=== PATIENT | female | born 1960 | race Caucasian/White ===

== ENCOUNTER → 2018-03-17 16:08 | Outpatient (CLI) | payer OTHER, SELFPAY ==
--- NOTE | 2018-03-17 16:13 | BI_ITS ---
MAMMOGRAPHY - BILATERAL SCREENING REASON FOR EXAM: Female, 57 years old. Routine annual screening examination. PERTINENT HISTORY: Grandmother with breast cancer. Remote right excisional breast biopsy and stereotactic breast biopsy. TECHNIQUE: Digital bilateral breast neeta (3D mammographic acquisition) in the CC and MLO projections. 2-D mediolateral oblique (MLO) and craniocaudad (CC) views of both breasts were obtained. CAD: Full Field Digital Mammography with Computer Added Detection was performed. COMPARISON: Comparison is made with prior study dated January 30, 2017 and September 30, 2015. FINDINGS: Breast Composition: The breasts are heterogeneously dense, which may obscure small masses. There are no dominant masses or suspicious calcifications. Stable 1.3 cm x 0.9 cm well-defined nodule in the upper lateral deep portion of the right breast. This has a central fatty hilum suggestive of a small lymph node. No other significant abnormalities are identified. There has been no significant change since the prior study. BI/SCREENING MAMM (CAD), BILAT IMPRESSION: Stable bilateral screening mammogram. Yearly follow-up mammogram recommended. (A) ASSESSMENT CATEGORY: BIRADS Category 2: Benign. A letter regarding these results will be sent to the patient by the facility within 30 days. Approximately 10% of breast cancers are not detected by mammography. A normal mammogram should not delay biopsy of a clinically suspicious abnormality. [id number] Electronically Signed: Amado Sepulveda MD at 8:44 EST , Service support ,
== END ==
PROVIDERS: Family Provider Family Medicine; PCP Family Medicine; Referring Provider Nurse Practitioner Family; Visit Provider Nurse Practitioner Family
DX: Z12.31 Encounter for screening mammogram for malignant neoplasm of breast (principal)
CPT/HCPCS: 77063; 77067

== ENCOUNTER → 2019-07-20 07:29 | Outpatient (CLI) | payer OTHER, SELFPAY ==
--- NOTE | 2019-07-20 07:30 | BI_ITS ---
MAMMOGRAPHY - BILATERAL SCREENING REASON FOR EXAM: Female, 59 years old. Routine annual screening examination. PERTINENT HISTORY: Grandmother with breast cancer. Remote right excisional breast biopsy and right stereotactic breast biopsy. TECHNIQUE: Digital bilateral breast stephane (3D mammographic acquisition) in the CC and MLO projections. 2-D mediolateral oblique (MLO) and craniocaudad (CC) views of both breasts were obtained. CAD: Full Field Digital Mammography with Computer Added Detection was performed. COMPARISON: Comparison is made with prior examination dated March 17, 2018 and January 30, 2017. FINDINGS: Breast Composition: The breasts are heterogeneously dense, which may obscure small masses. There are no dominant masses or suspicious calcifications. Stable 1.3 cm x 0.9 cm well-defined nodule with a fatty hilum in the deep upper lateral aspect of the right breast suggestive of. No other significant abnormalities are identified. There has been no significant change since the prior study. BI/SCREEN MAMM (CAD) W/STEPHANE BILAT IMPRESSION: Stable bilateral screening mammogram. Yearly follow-up mammogram recommended. (A) ASSESSMENT CATEGORY: BIRADS Category 2: Benign. A letter regarding these results will be sent to the patient by the facility within 30 days. Approximately 10% of breast cancers are not detected by mammography. A normal mammogram should not delay biopsy of a clinically suspicious abnormality. [id number] Electronically Signed: Amado Sepulveda, at 8:48 EDT , Service support ,
== END ==
PROVIDERS: PCP Family Medicine; Referring Provider Nurse Practitioner Family; Visit Provider Nurse Practitioner Family
DX: Z12.31 Encounter for screening mammogram for malignant neoplasm of breast (principal)
CPT/HCPCS: 77063; 77067

== ENCOUNTER → 2021-01-18 07:11 | Outpatient (CLI) | payer OTHER, SELFPAY ==
--- NOTE | 2021-01-18 07:13 | BI_ITS ---
MAMMOGRAPHY - BILATERAL SCREENING REASON FOR EXAM: Female, 60 years old. Routine annual screening examination. PERTINENT HISTORY: Grandmother with breast cancer. Remote right excisional breast biopsy and right stereotactic breast biopsy. TECHNIQUE: Digital bilateral breast stephane (3D mammographic acquisition) in the CC and MLO projections. 2-D mediolateral oblique (MLO) and craniocaudad (CC) views of both breasts were obtained. CAD: Full Field Digital Mammography with Computer Added Detection was performed. COMPARISON: Comparison is made with prior examination dated 07/20/2019 and 03/17/2018. FINDINGS: Breast Composition: The breasts are heterogeneously dense, which may obscure small masses. There are no dominant masses or suspicious calcifications. Stable 1.3 cm x 9 cm well-defined nodule in the deep upper lateral aspect of the right breast. A fatty hilum is seen within it suggestive of a benign appearing lymph node. No other significant abnormalities are identified. There has been no significant change since the prior study. BI/SCRN MAMM (CAD)W/STEPHANE BILAT IMPRESSION: Stable bilateral screening mammogram. Yearly follow-up mammogram recommended. (A) ASSESSMENT CATEGORY: BIRADS Category 2: Benign. A letter regarding these results will be sent to the patient by the facility within 30 days. Approximately 10% of breast cancers are not detected by mammography. A normal mammogram should not delay biopsy of a clinically suspicious abnormality. [id number] Electronically Signed: Amado Sepulveda MD at 11:03 EST , Service support ,
== END ==
PROVIDERS: PCP Family Medicine; Referring Provider Nurse Practitioner Family; Visit Provider Nurse Practitioner Family
DX: Z12.31 Encounter for screening mammogram for malignant neoplasm of breast (principal)
CPT/HCPCS: 77063; 77067

== ENCOUNTER → 2022-01-25 | Outpatient (CLI) | payer BC, SELFPAY ==
--- NOTE | 2022-01-25 07:07 | BI_ITS ---
MAMMOGRAPHY - BILATERAL SCREENING REASON FOR EXAM: Female, 61 years old. Routine annual screening examination. PERTINENT HISTORY: Grandmother with breast cancer. Remote right excisional breast biopsy and stereotactic breast biopsy. TECHNIQUE: Digital bilateral breast stephane (3D mammographic acquisition) in the CC and MLO projections. 2-D mediolateral oblique (MLO) and craniocaudad (CC) views of both breasts were obtained. CAD: Full Field Digital Mammography with Computer Added Detection was performed. COMPARISON: Comparison is made with prior study dated 01/18/2021 and 07/20/2019. FINDINGS: Breast Composition: The breasts are heterogeneously dense, which may obscure small masses. There are no dominant masses or suspicious calcifications. Stable 1.3 cm x 1 cm well-defined nodule in the deep upper lateral aspect of the right breast. The fatty hilum is seen in the central portion suggestive of a small lymph node. A tissue marker is seen within a tiny nodule in the slightly inferior lateral aspect of the right breast. No other significant abnormalities are identified. There has been no significant change since the prior study. BI/SCRN MAMM (CAD)W/STEPHANE BILAT IMPRESSION: Stable bilateral screening mammogram. Yearly follow-up mammogram recommended. (A) ASSESSMENT CATEGORY: BIRADS Category 2: Benign. A letter regarding these results will be sent to the patient by the facility within 30 days. Approximately 10% of breast cancers are not detected by mammography. A normal mammogram should not delay biopsy of a clinically suspicious abnormality. [id number] Electronically Signed: Amado Sepulveda MD at 8:22 EST ,
== END | disposition home or self-care (01) ==
LOC: OPBI 07:04
PROVIDERS: PCP Family Medicine; Visit Provider Nurse Practitioner Family
DX: Z12.31 Encounter for screening mammogram for malignant neoplasm of breast (principal)
CPT/HCPCS: 77063; 77067

== ENCOUNTER → 2022-01-26 | Outpatient (CLI) | payer BC, SELFPAY ==
[2022-01-26 07:55] LABS: AST(SGOT) 8 U/L (15-37); Alanine Aminotransfer ALT/SGPT 22 U/L (13-56); Albumin, Serum 3.4 g/dL (3.2-5.0); Alkaline Phosphatase 61 U/L (45-117); Anion Gap 6 (5-15); BUN 14 mg/dL (7-18); BUN/Creat Ratio 14.5 RATIO (10-20); Calcium,Total 8.9 mg/dL (8.5-10.1); Chloride 107 mmol/L (98-107); Cholesterol 215 mg/dL (200); Creatinine, Serum 0.97 mg/dL (0.55-1.02); EST Glomerular Filtration Rate 62 mL/min (>60); Est Glom Filt Rate - Afr Amer 75 mL/min (>60); Globulin 3.4 g/dL (2.2-4.2); Glucose 103 mg/dL (74-106); High Density Lipoprotein 51 mg/dL; Potassium 3.8 mmol/L (3.5-5.1); Protein, Total 6.8 g/dL (6.4-8.2); Sodium Level 140 mmol/L (136-145); Triglycerides 90 mg/dL; Very Low Density Lipoprotein 18 mg/dL (5-40)
== END | disposition home or self-care (01) ==
LOC: LAB 06:18
PROVIDERS: PCP Family Medicine; Referring Provider Nurse Practitioner Family; Visit Provider Nurse Practitioner Family
DX: E78.00 Pure hypercholesterolemia, unspecified (principal)
CPT/HCPCS: 36415; 80053; 80061

== ENCOUNTER → 2023-01-28 | Outpatient (CLI) | payer BC, SELFPAY ==
--- NOTE | 2023-01-28 07:39 | BI_ITS ---
MAMMOGRAPHY - BILATERAL SCREENING REASON FOR EXAM: Female, 62 years old. Routine annual screening examination. PERTINENT HISTORY: Grandmother with breast cancer. Remote right excisional breast biopsy and right stereotactic breast biopsy. TECHNIQUE: Digital bilateral breast stephane (3D mammographic acquisition) in the CC and MLO projections. 2-D mediolateral oblique (MLO) and craniocaudad (CC) views of both breasts were obtained. CAD: Full Field Digital Mammography with Computer Added Detection was performed. COMPARISON: Comparison is made with prior study January 25, 2022 and January 18, 2021. FINDINGS: Breast Composition: The breasts are heterogeneously dense, which may obscure small masses. There are no dominant masses or suspicious calcifications. Stable 1.3 cm x 1 cm well-defined nodule in the deep upper outer aspect of the right breast. A fatty hilum is seen suggestive of a small lymph node. A tissue clip marker is seen within a tiny nodule in the slightly inferior lateral aspect of the right breast. No other significant abnormalities are identified. There has been no significant change since the prior study. BI/SCRN MAMM (CAD)W/STEPHANE BILAT IMPRESSION: Stable bilateral screening mammogram. Yearly follow-up mammogram recommended. (A) ASSESSMENT CATEGORY: BIRADS Category 2: Benign. A letter regarding these results will be sent to the patient by the facility within 30 days. Approximately 10% of breast cancers are not detected by mammography. A normal mammogram should not delay biopsy of a clinically suspicious abnormality. [id number] Electronically Signed: Amado Sepulveda MD at 8:45 EST ,
== END | disposition home or self-care (01) ==
LOC: OPBI 07:37
PROVIDERS: PCP Family Medicine; Referring Provider Nurse Practitioner Family; Visit Provider Nurse Practitioner Family
DX: Z12.31 Encounter for screening mammogram for malignant neoplasm of breast (principal)
CPT/HCPCS: 77063; 77067

== ENCOUNTER → 2024-01-30 | Outpatient (CLI) | payer BC, SELFPAY ==
--- NOTE | 2024-01-30 07:02 | BI_ITS ---
MAMMOGRAPHY - BILATERAL SCREENING REASON FOR EXAM: Female, 63 years old. Routine annual screening examination. PERTINENT HISTORY: Grandmother with breast cancer. History remote right excisional breast biopsy and right stereotactic breast biopsy. TECHNIQUE: Digital bilateral breast stephane (3D mammographic acquisition) in the CC and MLO projections. 2-D mediolateral oblique (MLO) and craniocaudad (CC) views of both breasts were obtained. CAD: Full Field Digital Mammography with Computer Added Detection was performed. COMPARISON: Comparison is made with prior study dated October 29, 2022 and January 25, 2022. FINDINGS: Breast Composition: The breasts are heterogeneously dense, which may obscure small masses. Stable 1.3 cm x 1 cm well-defined nodule in the deep upper lateral aspect of the right breast. A fatty hilum is seen within the suggestive of a small lymph node. A tissue clip marker is seen within a tiny nodule in the slightly inferior lateral aspect of the right breast. There has been no change. No other significant abnormalities are identified. There has been no significant change since the prior study. BI/SCRN MAMM (CAD)W/STEPHANE BILAT IMPRESSION: Stable bilateral screening mammogram. Yearly follow-up mammogram recommended. (A) ASSESSMENT CATEGORY: BIRADS Category 2: Benign. A letter regarding these results will be sent to the patient by the facility within 30 days. Approximately 10% of breast cancers are not detected by mammography. A normal mammogram should not delay biopsy of a clinically suspicious abnormality. [id number] Electronically Signed: Amado Sepulveda MD at 8:43 EST ,
== END | disposition home or self-care (01) ==
LOC: OPBI 06:58
PROVIDERS: PCP Nurse Practitioner Family; Referring Provider Nurse Practitioner Family; Visit Provider Nurse Practitioner Family
DX: Z12.31 Encounter for screening mammogram for malignant neoplasm of breast (principal)
CPT/HCPCS: 77063; 77067

== ENCOUNTER → 2025-02-01 | Outpatient (CLI) | payer BC, SELFPAY ==
--- NOTE | 2025-02-01 07:41 | BI_ITS ---
EXAM: SCRN MAMM (CAD)W/STEPHANE BILAT DATE: 02/01/2025 CLINICAL HISTORY: F, Age 64 y/o , SCREENING TECHNIQUE: Procedure Code: [id number] Modality: MG Procedure: SCRN MAMM (CAD)W/STEPHANE BILAT COMPARISON: Prior exam(s) dated 01/30/2024, 01/28/2023, and 01/25/2022. FINDINGS: TISSUE DENSITY: The breasts are almost entirely fatty. Bilateral Breast Mammographic Findings: No suspicious masses, suspicious clustered microcalcifications, architectural distortion or secondary signs of malignancy is identified in either breast. Benign round calcifications are seen in both breasts. Benign-appearing macrocalcifications are seen in the right breast. Partially obscured stable isodense masses are seen in the right breast. BI/SCRN MAMM (CAD)W/STEPHANE BILAT IMPRESSION: Benign screening mammogram OVERALL FINAL ASSESSMENT BI-RADS 2: BENIGN RECOMMENDATION: Routine annual follow-up in 1 Year Additional Recommendation none A letter with findings and recommendations will be mailed to the patient. Reading Location: [id number]
--- OUTSIDE RECORDS SUMMARY | 2025-02-01 07:57 | XMS RPT_ITS | CCD ---
Author Organization [facility] Care Team Providers Care Manager Client Name Role Phone Dawood Pitts MD Primary Care Provider DAWOOD PITTS Primary Care Unavailable ADI, GALA Referring Unavailable ADI, GALA Attending Unavailable [place] FINANCE MANAGER, Gala Referring Unavailable Adi FINANCE MANAGER, Gala Attending Unavailable [place] FINANCE MANAGER, Gala Primary Care Unavailable Allergies Allergy Classification Reported Allergen(s) Allergy Type Date of Onset Reaction(s) Facility (3 sources) Erythromycin; Translations: [ERYTHROMYCIN] Drug Allergy [facility] Work Phone: (3 sources) Penicillins; Translations: [PENICILLINS] Propensity to adverse reactions [facility] Work Phone: (3 sources) Sulfonamides (Antibiotic); Translations: [SULFA (SULFONAMIDE ANTIBIOTICS)] Propensity to adverse reactions [facility] Work Phone: (1 source) Penicillins Drug allergy (disorder) [facility] Repository (1 source) Sulfonamides (Antibiotic) Drug allergy (disorder) 5 [facility]ository Medications Completed/Discontinued Medications Medication Drug Class(es) Dates Sig (Normalized) Sig (Original) aspirin 81 mg delayed release oral tablet (2 sources) Platelet Aggregation Inhibitor, Nonsteroidal Anti-inflammatory Drug Start: 02-15-2011 take 1 tablet by mouth once daily aspirin, enteric coated (ASPIRIN, ENTERIC COATED) 81 mg EC tablet Take 1 tablet by mouth once daily. 0 02/15/2011 Active Comment on above: Take 1 tablet by alyce once daily. MULTIVITAMIN TAB (2 sources) Start: 01-06-2007 MULTIVITAMIN TAB Take one(1) tablet daily. 0 01/06/2007 Active Comment on above: Take one(1) tablet d aily. Problems Active Problems Problem Classification Problem Date Documented Date Episodic/Chronic Disorders of lipid metabolism (2 sources) Hyperlipidemia; Translations: [Hyperlipidemia, unspecified] Onset: 04-08-2012 04-08-2012 Chronic Immunizations and screening for infectious disease (3 sources) Patient encounter status; Translations: [Encounter for screening for human papillomavirus (HPV)] Episodic Other screening for suspected conditions (not mental disorders or infectious disease) (1 source) Encounter for screening mammogram for malignant neoplasm of breast; Translations: [Encounter for screening mammogram for malignant neoplasm of breast] Onset: 03-05-2024 Episodic Past or Other Problems Problem Classification Problem Date Documented Date Episodic/Chronic Residual codes; unclassified (2 sources) History of endometrial ablation; Translations: [Other specified postprocedural states] Onset: 04-08-2012 04-08-2012 Episodic Results Test Name Value Interpretation Reference Range Facil ity SCRN MAMM (CAD)W/STEPHANE BILATo n 01-30-2024 SCRN MAMM (CAD)W/STEPHANE BILAT [facility] [address] [place] [address] [id number] SCRN MAMM (CAD)W/STEPHANE BILAT MR#: [id number] Acct: [id number] Name: BENSON WOOD Rep #: [id number] : 1960 F 63 From: Amado jaeger MD PCP: VENTURA Garcia Status: [facility] Study: SCRN MAMM (CAD)W/STEPHANE BILAT Date of Exam: 01/11 11/04 Exam# [id number] Ordering Dr: Gala Baker NP FINANCE MANAGER- C [id number] MAMMOGRAPHY - BILATERAL SCREENING REASON FOR EXAM: Female, 63 years old. Routine annual screening examination. PERTINENT HISTORY: Grandmother with breast cancer. History remote right excisional breast biopsy and right stereotactic breast biopsy. TECHNIQUE: Digital bilateral breast stephane (3D mammographic acquisition) in the CC and MLO projections. 2-D mediolateral oblique (MLO) and craniocaudad (CC) views of both breasts were obtained. CAD: Full Field Digital Mammography with Computer Added Detection was performed. COMPARISON: Comparison is made with prior study dated October 29, 2022 and January 25, 2022. FINDINGS: Breast Composition: The breasts are heterogeneously dense, which may obscure small masses. Stable 1.3 cm x 1 cm well-defined nodule in the deep upper lateral aspect of the right breast. A fatty hilum is seen within the suggestive of a small lymph node. A tissue clip marker is seen within a tiny nodule in the slightly inferior lateral aspect of the right breast. There has been no change. No other significant abnormalities are identified. There has been no significant change since the prior study. BI/SCRN MAMM (CAD)W/STEPHANE BILAT IMPRESSION: Stable bilateral screening mammogram. Yearly follow-up mammogram recommended. (A) ASSESSMENT CATEGORY: BIRADS Category 2: Benign. A letter regarding these results will be sent to the patient by the facility within 30 days. Approximately 10% of breast cancers are not detected by mammography. A normal mammogram should not delay biopsy of a clinically suspicious abnormality. 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 Postmenopausal: Yes. (ablation 2011) HRT use: No. Last Pap: 01/18/2022 normal HPV: 01/17/2022 negative History of abnormal pap: No Last mammogram: 2021 normal @ [facility] History of abnormal mammogram: Yes right breast cyst Sexually active: Yes Pain with intercourse: No Postcoital bleeding: No OB History T2 L2 SAB0 IAB0 Ectopic0 Multiple0 Live Births0 [employer] History LMP: 01/03/2010, Ablation Age at Menarche: Age at First : Age at Menopause: [employer] History Comments: Sexual Activity: Yes; Male; ablation Contraception: Tubal Ligation PAST MEDICAL HISTORY Diagnosis Date Regional enteritis of unspecified site PAST SURGICAL HISTORY Procedure Laterality Date CHOLECYSTECTOMY LIG/TRNSXJ FLP TUBE ABDL/VAG APPR UNI/BI PAST SURGICAL HISTORY OF 1992 cyst removed from right breast STEREO LOC FOR CORE BRST BX RT 03-03-08 TONSILLECTOMY AND ADENOIDECTOMY FAMILY HISTORY Problem Relation Age of Onset Colon Cancer Mother Stroke Father heart disease SOCIAL HISTORY Social History Tobacco Use Smoking status: Never Passive exposure: Never Smokeless tobacco: Never Vaping Use Vaping Use: Never used Substance Use Topics Alcohol use: No Drug use: No REVIEW OF SYSTEMS Abdomen: No abdominal pain, nausea, vomiting, diarrhea, or constipation. No bloating, early satiety, indigestion, or increased flatulence. Bladder: No dysuria, gross hematuria, urinary frequency, urinary urgency, +stress incontinence Breast: No breast lumps, nipple d/c, overlying skin changes, redness or skin retraction Allergies and current medication updated:Yes EXAM: Ht 5' 5 (1.65m) Wt 163 lb 12.8 oz (74.3kg) LMP 01/03/2010 BMI 27.26 kg/(m2). GENERAL: pleasant, female in no apparent distress HEENT: Normocephalic, atraumatic, mucus membranes moist, and no lesions NECK: Supple, full range of motion, no adenopathy, and thyroid normal DERMATOLOGY: Normal, without lesions, non-icteric, and non-hirsute BREAST: soft, non-tender, symmetric, no dominant mass, normal nipple-areolar complex, no lymphadenopathy, and no nipple discharge CHEST: Normal inspiratory effort ABDOMEN: soft, non-tender, and no masses PELVIC: external genitalia normal, normal Bartholin's glands, urethra, [employer]'s glands, no vulvar lesions, no cervical lesions, good vaginal support, physiologic discharge present, normal appearing perineal body and perianal region BIMANUAL: uterus normal size, shape and consistency, no adnexal masses, and non-tender RECTOVAGINAL: deferred. NEURO: alert and oriented x3,exam grossly non-focal EXTREMITIES: normal ASSESSMENT/PLAN: 1) Health maintenance: Pap/HPV up to date. Mammogram ordered Nutrition, exercise and routine health maintenance exams reviewed. Calcium/Vitamin D supplementation information provided. Colon cancer screening: up to date with screening due 2024 2) Follow up one year or sooner as needed Gala Baker APRN.CABLE TOWER OPERATOR Referring Provider: GALA BAKER [[id number]] Allergies As of Date: 01/17/2023 Noted Allergy Reaction ERYTHROMYCIN 01/06/2007 4 - Hives PENICILLINS 01/06/2007 4 - Hives SULFA (SULFONAMIDE ANTIBIOTICS) 01/06/2007 4 - Hives Date Reviewed: 01/17/2023 Reviewed by: Marcelina Maza LPN - Fully Assessed Reason for Visit: Yearly Exam For [3200] Primary Visit Diagnosis:Encounter for gynecological examination (general) (routine) without abnormal findings [Z01.419] Prescriptions as of 01/17/2023 - aspirin, enteric coated (ASPIRIN, ENTERIC COATED) 81 mg EC tablet Take 1 tablet by mouth once daily. - MULTIVITAMIN TAB Take one(1) tablet daily. Problem List As Of Date 01/17/2023 Noted Resolved S/P endometrial ablation [Z98.890] 04/08/2012 Hyperlipidemia [E78.5] 04/08/2012 Disposition: Return in 1 year (on 01/18/2024) for Annual Exam. Follow-up and Disposition History for Encounter Date Provider Department Center 01/17/2023 [id number] WHITE [facility] Encounter Status:Closed by GALA BAKER on 01/17/23 Normal [facility] Vital Signs Date Time Vital Sign Value Performing Clinician Stephanie caraballo 01-17-2023 14:22-0500 Body height 165.1 cm Gala [place] WAFER CLEANER.CABLE TOWER OPERATOR Work Phone: [facility] 01-17-2023 14:22-0500 Body weight 74.3 kg Gala Adi WAFER CLEANER.CABLE TOWER OPERATOR Work Phone: [facility] 01-17-2023 14:22-0500 Diastolic blood pressure 70 mm[Hg] Gala Adi WAFER CLEANER.CABLE TOWER OPERATOR Work Phone: [facility] 01-17-2023 14:22-0500 Systolic blood pressure 120 mm[Hg] Gala Adi WAFER CLEANER.CABLE TOWER OPERATOR Work Phone: [facility] 01-15-2022 07:00-0500 Body height 165.1 cm Gala Adi WAFER CLEANER.CABLE TOWER OPERATOR Work Phone: [facility] 01-15-2022 07:00-0500 Body weight 80.38 kg Gala [place] WAFER CLEANER.CABLE TOWER OPERATOR Work Phone: [facility] 01-15-2022 07:00-0500 Diastolic blood pressure 64 mm[Hg] Gala Adi WAFER CLEANER.CABLE TOWER OPERATOR Work Phone: [facility] 01-15-2022 07:00-0500 Systolic blood pressure 122 mm[Hg] Gala [place] WAFER CLEANER.CABLE TOWER OPERATOR Work Phone: [facility] Encounters Encounter Date Encounter Type Care Provider Facility Start: 01-30-2024 End: 01-30-2024 ambulatory Gala Baker FINANCE MANAGER Facility:[facility] Start: 01-17-2023 End: 01-18-2023 ambulatory [facility] Facility:[facility] Start: 01-17-2023 Encounter for gynecological examination (general) (routine) without abnormal findings GALA BAKER [facility] Start: 01-17-2023 End: 01-17-2023 Patient encounter procedure Gala Baker APRN.CNP Work Phone: OB/Gynecology Comment on above: Encounter for gyneco logical examination (general) (routine) without abnormal findings (Primary Dx) Start: 01-17-2023 End: 01-17-2023 Patient encounter status Gala Baker WAFER CLEANER.DESTIN Work Phone: [facility] Work Phone: Start: 01-15-2022 End: 01-15-2022 Patient encounter procedure Gala Baker APRN.CNP Work Phone: OB/Gynecology Comment on above: Encounter for gyneco logical examination (general) (routine) without abnormal findings (Primary Dx); Encounter for screening for human papillomavirus (HPV); Pap smear for cervical cancer screening; Encounter for screening mammogram for malignant neoplasm of breast Start: 01-15-2022 End: 01-15-2022 Patient encounter status aGla Baker APRN.CNP Work Phone: OB/Gynecology Procedures Date Procedure Procedure Detail Performing Clinician Start: 07-20-2019 Mammography Gala nassar APRN.CNP Work Phone: Start: 12-28-2016 Lipid 1996 panel - S [place] or Plasma Gala Baker APRN.DESTIN Work Phone: Plan of Treatment Date Care Activity Detail Author Start: 01-15-2027 HPV Testing HPV Testing [facility] Start: 01-15-2027 Pap Testing Pap Testing [facility] Start: 01-25-2023 Mammography Mammogram Screening [facility] Start: 10-12-2022 Covid-19 Vaccine ( season) Covid-19 Vaccine () [facility] Start: 10-12-2022 Influenza vaccination Influenza Vacc ine (#1) [facility] Start: 02-11-2022 Depression Assessment Depression Ass essment [facility] Start: 12-28-2021 Lipid 1996 panel - Serum or Plasma Lipid Screening [facility] Start: 12-28-2021 LIPID SCREEN LIPID SCREEN [facility] Start: 12-26-2021 HPV TESTING HPV TESTING [facility] Start: 12-26-2021 PAP TESTING PAP TESTING [facility] Start: 10-12-2021 Influenza vaccination INFLUENZA (#1) [facility] Start: 02-11-2021 [facility]ION [facility] Start: 02-02-2021 COVID-19 VACCINE (4 - Booster for Moderna series) COVID-19 VACCINE (4 - Booster for Moderna series) [facility] Start: 07-19-2020 Mammography MAMMOGRAM [facility] Start: 2020 RSV Vaccine (1 - 1-d ose 60+ series) RSV Vaccine (1 - 1-dose 60+ series) [facility] Start: 12-29-2019 DIABETES SCREEN DIABETES SCREEN [facility] Start: 12-29-2019 Diabetes Screening Diabetes Screenin g [facility] Start: 2010 SHINGRIX VACCINE (1 of 2) SHINGRIX VACCINE (1 of 2) [facility] Start: 2005 COLOGUARD (FIT-DNA) COLOGUARD (FIT-D NA) [facility] Start: 2005 Colonoscopy COLONOSCOPY [facility] Start: 2005 COLORECTAL CANCER SCREENING COLORECTAL CANCER SCREENING [facility] Start: [address] COLONOGRAPHY [facility] Start: 2005 FECAL OCCULT BLOOD FECAL OCCULT BLOO D [facility] Start: 2005 SIGMOIDOSCOPY SIGMOIDOSCOPY [facility] Start: 06-28-1979 Urine microalbumin profile [facility] Start: 1978 HEPATITIS C SCREENING HEPATITIS C SC REENING [facility] Start: 1978 HIV SCREENING HIV SCREENING [facility] PAP FLUID CERVICAL SCREENING PAP FLUID CERVICAL SCREENING Lab Routine Encounter for screening for human papillomavirus (HPV) Pap smear for cervical cancer screening Ordered: 01/15/2022 [facility] Work Phone: Comment on above: Ordered: 01/15/2022 [facility] Immunizations Immunization Date Immunization Notes Care Provider Fa janice 12-08-2020 COVID-19 original vaccine, full dose, monovalent (MODERNA) Gala [place] WAFER CLEANER.CABLE TOWER OPERATOR Work Phone: [facility] Work Phone: 03-23-2020 COVID-19 original vaccine, full dose, monovalent (MODERNA) Gala Adi WAFER CLEANER.CABLE TOWER OPERATOR Work Phone: [facility] Work Phone: 02-24-2020 COVID-19 original vaccine, full dose, monovalent (MODERNA) Gala Adi WAFER CLEANER.CABLE TOWER OPERATOR Work Phone: [facility] Work Phone: 12-10-2017 influenza virus vaccine, unspecified formulation Gala Adi WAFER CLEANER.CABLE TOWER OPERATOR Work Phone: [facility] Payers Date Payer Category Payer Self-pay 2021 Unknown [employer] [id number] 2021-Present [phone] [address] [place] [address] PPO [id number] 2021 Unknown [id number] Unknown [id number] Social History Date Type Detail Facility Start: 01-15-2022 End: 01-17-2023 Tobacco smoking status NHIS Never smoked tobacco [facility] Work Phone: Start: 01-15-2022 End: 01-17-2023 Tobacco use and exposure Smokeless tobacco non-user [facility] Work Phone: Start: 01-15-2022 End: 01-17-2023 Alcohol intake Current non-drinker of alcohol (finding) [facility] Start: 07-28-2019 History SDOH Social Connections Phone 5 [facility] Start: 07-28-2019 History SDOH Social Connections Hinduism 3 [facility] Start: 07-28-2019 History SDOH Social Connections Membership 1 [facility] Start: 07-28-2019 History SDOH Physica l Activity MPS 4 [facility] Start: 07-28-2019 History SDOH Transpo rt Med 2 [facility] Start: 07-28-2019 Education 17 [facility] Start: 1960 Sex Assigned At Not on file C [facility] Start: 01-05-2022 End: 01-15-2022 Exposure to SARS-CoV-2 (event) Not sure [facility] Work Phone: Start: 07-28-2019 End: 01-17-2023 History of Social function [facility] Work Phone: Start: 07-28-2019 End: 01-17-2023 Social connection and isolation panel [facility] Work Phone: Do you belong to any clubs or organizations such as hinduism groups, unions, fraternal or athletic groups, or school groups? Yes [facility] Work Phone: Are you now , , , , never or living with a partner? [facility] Work Phone: How hard is it for y ou to pay for the very basics like food, housing, medical care, and heating Not hard at all [facility] Work Phone: Do you feel stress - tense, restless, nervous, or anxious, or unable to sleep at night because your mind is troubled all the time - these days [OSQ] To some extent [facility] Work Phone: (I/We) worried wheth er (my/our) food would run out before (I/we) got money to buy more. Never true [facility] Work Phone: NEGATED: Highlighted rowStart: NINF History of tobacco use Passive smoker [facility] Work Phone: Progress note 01-17-2023 Note Date & Type Note Facility 01-17-2023 Note HNO ID: [id number] Author: Gala Baker APRN.CABLE TOWER OPERATOR Service: ? 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 Postmenopausal: Yes. (ablation 2011) HRT use: No. Last Pap: 01/18/2022 normal HPV: 01/17/2022 negative History of abnormal pap: No Last mammogram: 2021 normal @ [facility] History of abnormal mammogram: Yes right breast cyst Sexually active: Yes Pain with intercourse: No Postcoital bleeding: No OB History T2 L2 SAB0 IAB0 Ectopic0 Multiple0 Live Births0 [employer] History LMP: 01/03/2010, Ablation Age at Menarche: Age at First : Age at Menopause: [employer] History Comments: Sexual Activity: Yes; Male; ablation Contraception: Tubal Ligation PAST MEDICAL HISTORY Diagnosis Date Regional enteritis of unspecified site PAST SURGICAL HISTORY Procedure Laterality Date CHOLECYSTECTOMY LIG/TRNSXJ FLP TUBE ABDL/VAG APPR UNI/BI PAST SURGICAL HISTORY OF 1991 cyst removed from right breast STEREO LOC FOR CORE BRST BX RT 03-03-08 TONSILLECTOMY AND ADENOIDECTOMY FAMILY HISTORY Problem Relation Age of Onset Colon Cancer Mother Stroke Father heart disease SOCIAL HISTORY Social History Tobacco Use Smoking status: Never Passive exposure: Never Smokeless tobacco: Never Vaping Use Vaping Use: Never used Substance Use Topics Alcohol use: No Drug use: No REVIEW OF SYSTEMS Abdomen: No abdominal pain, nausea, vomiting, diarrhea, or constipation. No bloating, early satiety, indigestion, or increased flatulence. Bladder: No dysuria, gross hematuria, urinary frequency, urinary urgency, +stress incontinence Breast: No breast lumps, nipple d/c, overlying skin changes, redness or skin retraction Allergies and current medication updated:Yes EXAM: Ht 5' 5 (1.65m) Wt 163 lb 12.8 oz (74.3kg) LMP 01/03/2010 BMI 27.26 kg/(m2). GENERAL: pleasant, female in no apparent distress HEENT: Normocephalic, atraumatic, mucus membranes moist, and no lesions NECK: Supple, full range of motion, no adenopathy, and thyroid normal DERMATOLOGY: Normal, without lesions, non-icteric, and non-hirsute BREAST: soft, non-tender, symmetric, no dominant mass, normal nipple-areolar complex, no lymphadenopathy, and no nipple discharge CHEST: Normal inspiratory effort ABDOMEN: soft, non-tender, and no masses PELVIC: external genitalia normal, normal Bartholin's glands, urethra, [employer]'s glands, no vulvar lesions, no cervical lesions, good vaginal support, physiologic discharge present, normal appearing perineal body and perianal region BIMANUAL: uterus normal size, shape and consistency, no adnexal masses, and non-tender RECTOVAGINAL: deferred. NEURO: alert and oriented x3,exam grossly non-focal EXTREMITIES: normal ASSESSMENT/PLAN: 1) Health maintenance: Pap/HPV up to date. Mammogram ordered Nutrition, exercise and routine health maintenance exams reviewed. Calcium/Vitamin D supplementation information provided. 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 Postmenopausal: Yes. (ablation 2011) HRT use: No. Last Pap: 01/18/2022 normal HPV: 01/17/2022 negative History of abnormal pap: No Last mammogram: 2021 normal @ [facility] History of abnormal mammogram: Yes right breast cyst Sexually active: Yes Pain with intercourse: No Postcoital bleeding: No OB History T2 L2 SAB0 IAB0 Ectopic0 Multiple0 Live Births0 [employer] History LMP: 01/03/2010, Ablation Age at Menarche: Age at First : Age at Menopause: [employer] History Comments: Sexual Activity: Yes; Male; ablation Contraception: Tubal Ligation PAST MEDICAL HISTORY Diagnosis Date Regional enteritis of unspecified site PAST SURGICAL HISTORY Procedure Laterality Date CHOLECYSTECTOMY LIG/TRNSXJ FLP TUBE ABDL/VAG APPR UNI/BI PAST SURGICAL HISTORY OF 1991 cyst removed from right breast STEREO LOC FOR CORE BRST BX RT 03-03-08 TONSILLECTOMY & ADENOIDECTOMY <AGE 12 FAMILY HISTORY Problem Relation Age of Onset Colon Cancer Mother Stroke Father heart disease SOCIAL HISTORY Social History Tobacco Use Smoking status: Never Passive exposure: Never Smokeless tobacco: Never Vaping Use Vaping Use: Never used Substance Use Topics Alcohol use: No Drug use: No REVIEW OF SYSTEMS Abdomen: No abdominal pain, nausea, vomiting, diarrhea, or constipation. No bloating, early satiety, indigestion, or increased flatulence. Bladder: No dysuria, gross hematuria, urinary frequency, urinary urgency, +stress incontinence Breast: No breast lumps, nipple d/c, overlying skin changes, redness or skin retraction Allergies and current medication updated:Yes EXAM: Ht 5' 5 (1.65m) Wt 163 lb 12.8 oz (74.3kg) LMP 01/03/2010 BMI 27.26 kg/(m^2). GENERAL: pleasant, female in no apparent distress HEENT: Normocephalic, atraumatic, mucus membranes moist, and no lesions NECK: Supple, full range of motion, no adenopathy, and thyroid normal DERMATOLOGY: Normal, without lesions, non-icteric, and non-hirsute BREAST: soft, non-tender, symmetric, no dominant mass, normal nipple-areolar complex, no lymphadenopathy, and no nipple discharge CHEST: Normal inspiratory effort ABDOMEN: soft, non-tender, and no masses PELVIC: external genitalia normal, normal Bartholin's glands, urethra, [employer] glands, no vulvar lesions, no cervical lesions, good vaginal support, physiologic discharge present, normal appearing perineal body and perianal region BIMANUAL: uterus normal size, shape and consistency, no adnexal masses, and non-tender RECTOVAGINAL: deferred. NEURO: alert and oriented x3,exam grossly non-focal EXTREMITIES: normal ASSESSMENT/PLAN: 1) Health maintenance: Pap/HPV up to date. Mammogram ordered Nutrition, exercise and routine health maintenance exams reviewed. Calcium/Vitamin D supplementation information provided. Colon cancer screening: up to date with screening due 2024 2) Follow up one year or sooner as needed Gala Baker APRN.DESTIN documented in this encounter [facility] History of Present illness Narrative 01-15-2022 Gala Baker APRN.DESTIN - 01/15/2022 6:59 AM EST Note Date & Type Note Facility 01-15-2022 History of Presen t illness Narrative Benson is a 61 year old who presents for an annual gynecologic exam without complaints. Postmenopausal: Yes. (ablation 2011) HRT use: No. Last Pap: 2016 normal HPV: [id number] History of abnormal pap: No Last mammogram: 2020 normal @ [facility] History of abnormal mammogram: Yes right breast cyst Sexually active: Yes Pain with intercourse: No Postcoital bleeding: No Hot flashes: No Night sweats: No Vaginal dryness: No OB History T2 L2 SAB0 IAB0 Ectopic0 Multiple0 Live Births0 [employer] History LMP: 01/03/2010, Ablation Age at Menarche: Age at First : Age at Menopause: [employer] History Comments: Sexual Activity: Yes; Male; ablation Contraception: Tubal Ligation PAST MEDICAL HISTORY Diagnosis Date Regional enteritis of unspecified site PAST SURGICAL HISTORY Procedure Laterality Date CHOLECYSTECTOMY LIG/TRNSXJ FLP TUBE ABDL/VAG APPR UNI/BI PAST SURGICAL HISTORY OF 1991 cyst removed from right breast STEREO LOC FOR CORE BRST BX RT 03-03-08 TONSILLECTOMY & ADENOIDECTOMY <AGE 12 FAMILY HISTORY Problem Relation Age of Onset Colon Cancer Mother Stroke Father heart disease SOCIAL HISTORY Social History Tobacco Use Smoking status: Never Smokeless tobacco: Never Vaping Use Vaping Use: Never used Substance Use Topics Alcohol use: No Drug use: No REVIEW OF SYSTEMS Abdomen: No abdominal pain, nausea, vomiting, diarrhea, or constipation. No bloating, early satiety, indigestion, or increased flatulence. Bladder: No dysuria, gross hematuria, urinary frequency, urinary urgency,+stress incontinence Breast: No breast lumps, nipple d/c, overlying skin changes, redness or skin retraction Allergies and current medication updated:Yes EXAM: Ht 5' 5 (1.65m) Wt 177 lb 3.2 oz (80.4kg) LMP 01/03/2010 BMI 29.49 kg/(m^2). GENERAL: pleasant, female in no apparent distress HEENT: Normocephalic, atraumatic, and no lesions NECK: Supple, full range of motion, no adenopathy, and thyroid normal DERMATOLOGY: Normal, without lesions, non-icteric, and non-hirsute BREAST: soft, non-tender, symmetric, no dominant mass, normal nipple-areolar complex, no lymphadenopathy, and no nipple discharge CHEST: Normal inspiratory effort ABDOMEN: soft, non-tender, and no masses PELVIC: external genitalia normal, normal Bartholin's glands, urethra, [employer] glands, no vulvar lesions, no cervical lesions, good vaginal support, physiologic discharge present, normal appearing perineal body and perianal region BIMANUAL: uterus normal size, shape and consistency, no adnexal masses, and non-tender RECTOVAGINAL: deferred. NEURO: alert and oriented x3,exam grossly non-focal EXTREMITIES: normal ASSESSMENT/PLAN: 1) Health maintenance: Pap done with HPV. Mammogram ordered Nutrition, exercise and routine health maintenance exams reviewed. Calcium/Vitamin D supplementation information provided. Colon cancer screening: up to date with screening due 2024 2) Follow up one year or sooner as needed Gala Baker APRN.CNP documented in this encounter [facility] Evaluation note Note Date & Type Note Facility Evaluation note Diagnosis Encounter for gynecological examination (general) (routine) without abnormal findings- Primary Encounter for screening for human papillomavirus (HPV) Special screening examination for human papillomavirus (HPV) Pap smear for cervical cancer screening Screening for malignant neoplasm of the cervix Encounter for screening mammogram for malignant neoplasm of breast Other screening mammogram documented in this encounter [facility] Evaluation note Note Date & Type Note Facility Evaluation note Diagnosis Encounter for gynecological examination (general) (routine) without abnormal findings- Primary documented in this encounter [facility] Summary Purpose Family History No Family History Records FoundNo Family History Records Found Advance Directives No Advanced Directives Records FoundNo Advanced Directives Records Found Additional Source Comments Source Comments (unrecognize d section and content) In the event this informatio n is protected by the Federal Confidentiality of Alcohol and Drug Abuse Patient Records regulations: The Federal rules restrict any use of the information to criminally investigate or prosecute any alcohol or drug abuse patient.[facility] the event this information is protected by the Federal Confidentiality of Alcohol and Drug Abuse Patient Records regulations: The Federal rules restrict any use of the information to criminally investigate or prosecute any alcohol or drug abuse patient.[facility] Reason for Visit (unrecogniz ed section and content) Reason Comments Yearly Exam Reason Comments Yearly Exam For Care Teams (unrecognized sec tion and content) Manager Client Relationship Specialty Start Date End Date Dawood Pitts MD PCP - General Family Medicine 12/28/10 Manager Client Relationship Specialty Start Date End Date Dawood Pitts MD PCP - General Family Medicine 12/28/10 INFORMATION SOURCE (unrecogn ized section and content) DATE CREATED AUTHOR 01/22/2023 [facility] DATE CREATED AUTHOR AUTHOR'S ORGANIZ ATION 03/07/2024 [facility] FOR RECORDS PERTAINING TO PATIENTS WHO ARE OR HAVE BEEN ENROLLED IN A CHEMICAL DEPENDENCY/SUBSTANCEABUSE PROGRAM, SOME INFORMATION MAY BE OMITTED. This clinical summary was aggregated from multiple sources. Caution should be exercised in using it in the provision of clinical care. This summary normalizes information from multiple sources, and as a consequence, information in this document may materially change the coding, format and clinical context of patient data. In addition, data may be omitted in some cases. CLINICAL DECISIONS SHOULD BE BASED ON THE PRIMARY CLINICAL RECORDS. [employer] provides no warranty or guarantee of the accuracy or completeness of information in this document.
== END | disposition home or self-care (01) ==
LOC: OPBI 07:38
PROVIDERS: PCP Nurse Practitioner Family; Referring Provider Nurse Practitioner Family; Visit Provider Nurse Practitioner Family
DX: Z12.31 Encounter for screening mammogram for malignant neoplasm of breast (principal)
CPT/HCPCS: 77063; 77067